=== PATIENT | male | born 1990 | race Caucasian/White ===

== ENCOUNTER 2018-09-26 19:12 | Inpatient (IN) ==
[2018-09-26] MEDS ORDERED: 0.9 % Sodium Chloride 1,000 ML IVC ONE (19:55)
[2018-09-26] MEDS ORDERED: *HR* LORazepam 2 MG/ML VIAL IVP ONE (19:56)
[2018-09-26 20:11] LABS: Basophils # 0.1 K/mcL (0.0-0.2); Basophils % 0.8 %; Eosinophils # 0.3 K/mcL (0.0-0.6); Eosinophils % 3.8 %; Hematocrit 41.5 % (37.5-50.1); Hemoglobin 14.4 g/dL (12.9-16.9); Immature Granulocytes % 0.3 % (0-4); Lymphocytes # 2.8 K/mcL (0.6-4.6); Lymphocytes % 35.6 %; Mean Corpuscular HGB Conc 34.7 g/dL (31.6-35.5); Mean Corpuscular Hemoglobin 30.3 pg (28.0-33.3); Mean Corpuscular Volume 87.2 fL (83.0-100.0); Mean Platelet Volume 11.5 fL (9.4-12.4); Monocytes % 12.5 %; Neutrophils # 3.7 K/mcL (1.6-8.9); Platelet Count 183 K/mcL (140-400); Red Blood Count 4.76 M/mcL (4.19-5.50); Red Cell Distribution Width 13.3 % (11.5-14.5)
--- NOTE | 2018-09-26 20:12 | Emergency Department Note ---
Disposition Clinical Impression: Auditory hallucination Disposition: Admitted As Inpatient Condition: Fair Referrals: NONE,PCP [Primary Care Provider] - Forms: ED Satisfaction Letter Time of Disposition: 22:49 General Adult HPI - General Chief complaint: ED Syncope Stated complaint: Dizzy Near Syncope Pain/ Numbness All Over Time Seen by Provider: 09/26/18 19:14 Source: patient Mode of arrival: ambulatory Limitations: no limitations Nursing Notes Reviewed: Yes Vital Signs Reviewed: Yes - History of Present Illness HPI Narrative: Patient is a 28-year-old male with past medical history of substance abuse [facility] presents to the emergency department for evaluation of pain and states that he feels like he is dying. States his pain is less so physical more so emotional. States also hearing auditory hallucinations of voices in his head but he cannot make out what they are saying. He denies wanting to harm himself or harm others. He also states that he does not have anywhere to stay at this time. He was just seen in the emergency room yesterday for similar symptoms and is also displaying signs and symptoms of substance abuse at that time tachycardia and agitation. He denies drug use today although yesterday he did have a positive urine drug screen for amphetamines and marijuana. He does complain of pain in his right foot which was evaluated yesterday with an x-ray and showed chronic changes. Pain Scale: 0 - Related Data Previous Rx's Medication Instructions Recorded Orphenadrine [Norflex] 100 mg PO Q12HR #10 tablet.er 12/14/16 HYDROcodone/Acet 5/325 mg [[place] 1 tab PO Q6H PRN #10 tab 02/13/17 5-325 mg] Naproxen [Naprosyn] 500 mg PO BID PRN #15 tablet 02/13/17 Allergies Allergy/AdvReac Type Severity Reaction Status Date / Time Cefaclor [From [facility]] AdvReac Hives Verified 09/25/18 23:15 All systems ED: reviewed and negative except as stated. Review of Systems: As Per HPI Constitutional: Denies: fever, chills Cardiovascular: Denies: chest pain, palpitations Respiratory: Denies: cough, dyspnea, wheezes Gastrointestinal: Denies: abdominal pain, nausea, vomiting Genitourinary: Denies: urgency, dysuria, frequency Musculoskeletal: Denies: back pain, neck pain Integumentary: Denies: rash, abrasion, lesions Neurological: Denies: headache, weakness, numbness, paresthesias, confusion, abnormal gait Psychiatric: Reports: anxiety, depression, auditory hallucinations. Denies: suicidal thoughts, homicidal thoughts, visual hallucinations Past Medical History - Past Medical History Attestation: Yes The following information was validated with the patient. Medical history: Reports: hypertension Surgical history: Reports: non-contributory Psychiatric history: Reports: no psych history - Social History Smoking Status: Current every day smoker Smokeless Tobacco Status: No Alcohol use: Reports: none Drug use: Reports: none Physical Exam - General Limitations: no limitations General appearance: alert, anxious - Head Head exam: atraumatic, normocephalic, normal inspection - Eye Eye exam: Present: normal appearance, PERRL, EOMI - ENT ENT exam: normal exam, normal oropharynx, mucous membranes dry - Neck Neck exam: Present: normal inspection, full ROM, trachea midline - Chest Chest inspection: Present: normal inspection, symmetric chest wall rise - Respiratory Respiratory exam: Present: normal lung sounds bilaterally - Cardiovascular Cardiovascular exam: Present: normal rhythm, tachycardia, normal heart sounds, +S1, +S2 - Abdominal Exam Abdominal exam: Present: soft, Non-Tender. Absent: tenderness, distention, guarding, rebound, rigidity - Extremities Exam Extremities exam: Present: normal inspection, full ROM. Absent: tenderness, pedal edema - Back Exam Back exam: Present: normal inspection, full ROM. Absent: tenderness - Neurological Exam Neurological exam: Present: alert, oriented X3 - Psychiatric Psychiatric exam: Present: normal affect, normal mood - Skin Skin exam: Present: warm, dry, intact, normal color Course Course Narrative: Patient returns to the emergency department after being discharged earlier this morning and evaluated by both the psychiatric team as well as the [facility] nurse team. States that he is unable to deal with his voices that he is hearing in his head. He denies being homicidal or suicidal. Continues to deny drug use. Patient will undergo medical clearance for reevaluation by the psychiatric 1A team. He is tachycardic however yesterday his urine drug screen was positive for amphetamines. He also appears dry on exam. Receive a liter of fluids. - Reevaluation(s) Reevaluation #1: 1A team agrees to accept the patient. Time: 22:52 Vital Signs Temperature 99.7 F H 01/31/19 19:28 Pulse Rate 133 09/26/18 19:28 Respiratory Rate 16 09/26/18 19:28 Blood Pressure 173/93 09/26/18 19:28 O2 Sat by Pulse Oximetry 97 09/26/18 19:28 Temperature 99.7 F H 09/26/18 19:28 Pulse Rate 133 09/26/18 19:28 Respiratory Rate 16 09/26/18 19:28 Blood Pressure 173/93 09/26/18 19:28 O2 Sat by Pulse Oximetry 97 09/26/18 19:28 Oxygen Delivery Oxygen Delivery Room Air Medical Decision Making - Medical Records Medical records reviewed: Yes I reviewed the patient's medical records. - Lab Data Lab results reviewed: Yes I reviewed the patient's lab results. Result diagrams: 09/26/18 20:03 09/26/18 20:03 Lab Results 09/26/18 09/26/18 09/26/18 Range/Units 20:03 20:03 20:10 WBC 7.9 (4.3-11.1) K/mcL RBC 4.76 (4.19-5.50) M/mcL Hgb 14.4 (12.9-16.9) g/dL Hct 41.5 (37.5-50.1) % MCV 87.2 (83.0-100.0) fL MCH 30.3 (28.0-33.3) pg MCHC 34.7 (31.6-35.5) g/dL RDW 13.3 (11.5-14.5) % Plt Count 183 (140-400) K/mcL MPV 11.5 (9.4-12.4) fL Immature Gran % 0.3 (0-4) % Seg Neutrophils % 47.0 % Lymphocytes % 35.6 % Monocytes % 12.5 % Eosinophils % 3.8 % Basophils % 0.8 % Neutrophils # 3.7 (1.6-8.9) K/mcL Lymphocytes # 2.8 (0.6-4.6) K/mcL Monocytes # 1.0 (0.0-1.3) K/mcL Eosinophils # 0.3 (0.0-0.6) K/mcL Basophils # 0.1 (0.0-0.2) K/mcL Sodium 139 (136-145) mEq/L Potassium 3.0 L (3.5-5.1) mEq/L Chloride 103 (98-107) mEq/L Carbon Dioxide 27 (23-29) mEq/L BUN 6 (6-20) mg/dL Creatinine 0.67 L (0.70-1.30) mg/dL Est GFR ( Amer) > 60 (> 60) Est GFR (Non-Af Amer) > 60 (> 60) BUN/Creatinine Ratio 9 (6-26) Glucose 102 (70-105) mg/dL Calculated Osmolality 286 (280-300) Calcium 8.9 (8.6-10.3) mg/dL Urine Color Dark Yellow (Yellow) Urine Clarity Clear (Clear) Urine pH 6.0 (5.0-8.0) pH Units Ur Specific [place] 1.017 (1.010-1.025) Urine Protein Trace (Neg-Trace) mg/dL Urine Glucose (UA) Normal (Normal) mg/dL Urine Ketones 15 H (Negative) mg/dL Urine Blood Negative (Negative) Urine Nitrite Negative (Negative) Urine Bilirubin Small H (Negative) Urine Urobilinogen 2.0 H (Normal) mg/dL Ur Leukocyte Esterase Small H (Negative) Urine Microscopic RBC 0-3 (0-3) per hpf Urine Microscopic WBC 15-30 H (0-3) per hpf Ur Squamous Epith Cells Many H (None-Few) per lpf Urine Bacteria None Seen (None-Few) per hpf Hyaline Casts Few (None-Few) per lpf Salicylates < 2.5 L (15.0-30.0) mg/dL Urine Opiates Screen (Ydbtyh=098) ng/mL Acetaminophen < 10 L (10-20) mcg/mL Ur Barbiturates Screen (Goojge=857) ng/mL Ur Phencyclidine Scrn (Cutoff=25) ng/mL Ur Amphetamines Screen (Wrghoo=6839) ng/mL U Benzodiazepines Scrn (Ueiccz=544) ng/mL Urine Cocaine Screen (Cutoff= 300) ng/mL U Marijuana (THC) Screen (Cutoff = 50) ng/mL Ur Drug Screen Interp Ethyl Alcohol < 10 (Less than 10) mg/dL 09/26/18 Range/Units 20:13 WBC (4.3-11.1) K/mcL RBC (4.19-5.50) M/mcL Hgb (12.9-16.9) g/dL Hct (37.5-50.1) % MCV (83.0-100.0) fL MCH (28.0-33.3) pg MCHC (31.6-35.5) g/dL RDW (11.5-14.5) % Plt Count (140-400) K/mcL MPV (9.4-12.4) fL Immature Gran % (0-4) % Seg Neutrophils % % Lymphocytes % % Monocytes % % Eosinophils % % Basophils % % Neutrophils # (1.6-8.9) K/mcL Lymphocytes # (0.6-4.6) K/mcL Monocytes # (0.0-1.3) K/mcL Eosinophils # (0.0-0.6) K/mcL Basophils # (0.0-0.2) K/mcL Sodium (136-145) mEq/L Potassium (3.5-5.1) mEq/L Chloride (98-107) mEq/L Carbon Dioxide (23-29) mEq/L BUN (6-20) mg/dL Creatinine (0.70-1.30) mg/dL Est GFR ( Amer) (> 60) Est GFR (Non-Af Amer) (> 60) BUN/Creatinine Ratio (6-26) Glucose (70-105) mg/dL Calculated Osmolality (280-300) Calcium (8.6-10.3) mg/dL Urine Color (Yellow) Urine Clarity (Clear) Urine pH (5.0-8.0) pH Units Ur Specific [place] (1.010-1.025) Urine Protein (Neg-Trace) mg/dL Urine Glucose (UA) (Normal) mg/dL Urine Ketones (Negative) mg/dL Urine Blood (Negative) Urine Nitrite (Negative) Urine Bilirubin (Negative) Urine Urobilinogen (Normal) mg/dL Ur Leukocyte Esterase (Negative) Urine Microscopic RBC (0-3) per hpf Urine Microscopic WBC (0-3) per hpf Ur Squamous Epith Cells (None-Few) per lpf Urine Bacteria (None-Few) per hpf Hyaline Casts (None-Few) per lpf Salicylates (15.0-30.0) mg/dL Urine Opiates Screen Negative (Dmuwmp=852) ng/mL Acetaminophen (10-20) mcg/mL Ur Barbiturates Screen Negative (Rehudv=793) ng/mL Ur Phencyclidine Scrn Negative (Cutoff=25) ng/mL Ur Amphetamines Screen Positive H (Koduzt=0844) ng/mL U Benzodiazepines Scrn Negative (Nznvnb=611) ng/mL Urine Cocaine Screen Negative (Cutoff= 300) ng/mL U Marijuana (THC) Screen Positive H (Cutoff = 50) ng/mL Ur Drug Screen Interp See Below Ethyl Alcohol (Less than 10) mg/dL - EKG Data EKG #1 EKG attestation: Yes I reviewed and interpreted this EKG. EKG results narrative: EKG done at 19:40 shows sinus rhythm at a rate of 121 bpm. Normal axis. Intervals within normal limits. No signs of ischemia.
[2018-09-26 20:22] LABS: Bilirubin,Urine Small (Negative); Blood,Urine Negative (Negative); Clarity,Urine Clear (Clear); Color,Urine Dark Yellow (Yellow); Glucose,Urine (UA) Normal (Normal); Ketones,Urine 15 mg/dL (Negative); Leukocyte Esterase,Urine Small (Negative); Nitrite,Urine Negative (Negative); Protein,Urine Trace mg/dL (Neg-Trace); Specific Gravity,Urine 1.017 (1.010-1.025)
[2018-09-26 20:24] LABS: Bacteria,Urine None Seen per hpf (None-Few); Hyaline Casts,Urine Few per lpf (None-Few); RBC,Urine 0-3 per hpf (0-3); Squamous Epithelial Cell,Urine Many per lpf (None-Few); WBC,Urine 15-30 per hpf (0-3)
[2018-09-26 20:29] LABS: Amphetamine Screen,Urine Positive ng/mL (Cutoff=1000); Barbiturate Screen,Urine Negative ng/mL (Cutoff=200); Benzodiazepines Screen,Urine Negative ng/mL (Cutoff=200); Cannabinoid Screen,Urine Positive ng/mL (Cutoff = 50); Cocaine Screen,Urine Negative ng/mL (Cutoff= 300); Opiate Screen,Urine Negative ng/mL (Cutoff=300); Phencyclidine Screen,Urine Negative ng/mL (Cutoff=25)
[2018-09-26 20:31] LABS: Acetaminophen < 10 mcg/mL (10-20); BUN/Creatinine Ratio 9 (6-26); Blood Urea Nitrogen 6 mg/dL (6-20); Calcium 8.9 mg/dL (8.6-10.3); Carbon Dioxide 27 mEq/L (23-29); Chloride 103 mEq/L (98-107); Ethanol < 10 mg/dL (Less than 10); Glucose 102 mg/dL (70-105); Osmolality,Calculated 286 (280-300); Salicylate < 2.5 mg/dL (15.0-30.0); Sodium 139 mEq/L (136-145); eGFR For Non-African Americans > 60 (> 60)
[2018-09-26] MEDS ORDERED: *HR* LORazepam 1 MG TABLET PO PRN (22:53)
[2018-09-26] MEDS ORDERED: Haloperidol Lactate 5 MG/ML VIAL IM PRN (22:53)
[2018-09-26] MEDS ORDERED: MOM Conc 10 ML UD.LIQ PO PRN (22:53)
[2018-09-26] MEDS ORDERED: *HR* LORazepam 2 MG/ML VIAL IM PRN (22:53)
[2018-09-26] MEDS ORDERED: Mag Hydrox/Al Hydrox/Simeth 30 ML UDC PO PRN (22:53)
--- NOTE | 2018-09-26 23:24 | Emergency Department Note ---
Disposition Clinical Impression: Auditory hallucination Disposition: Admitted As Inpatient Condition: Fair General Adult HPI - General Chief complaint: ED Syncope Stated complaint: Dizzy Near Syncope Pain/ Numbness All Over Time Seen by Provider: 09/26/18 19:14 Source: patient Mode of arrival: ambulatory Limitations: no limitations Nursing Notes Reviewed: Yes Vital Signs Reviewed: Yes - History of Present Illness Pain Scale: 0 - Related Data Previous Rx's Medication Instructions Recorded Orphenadrine [Norflex] 100 mg PO Q12HR #10 tablet.er 12/14/16 HYDROcodone/Acet 5/325 mg [[place] 1 tab PO Q6H PRN #10 tab 02/13/17 5-325 mg] Naproxen [Naprosyn] 500 mg PO BID PRN #15 tablet 02/13/17 Allergies Allergy/AdvReac Type Severity Reaction Status Date / Time Cefaclor [From Ceclor] AdvReac Hives Verified 09/25/18 23:15 Constitutional: Denies: fever, chills Cardiovascular: Denies: chest pain, palpitations Respiratory: Denies: cough, dyspnea, wheezes Gastrointestinal: Denies: abdominal pain, nausea, vomiting Genitourinary: Denies: urgency, dysuria, frequency Musculoskeletal: Denies: back pain, neck pain Integumentary: Denies: rash, abrasion, lesions Neurological: Denies: headache, weakness, numbness, paresthesias, confusion, abnormal gait Psychiatric: Reports: anxiety, depression, auditory hallucinations. Denies: suicidal thoughts, homicidal thoughts, visual hallucinations Past Medical History - Past Medical History Medical history: Reports: hypertension Surgical history: Reports: non-contributory Psychiatric history: Reports: no psych history - Social History Smoking Status: Current every day smoker Smokeless Tobacco Status: No Alcohol use: Reports: none Drug use: Reports: none Physical Exam - General Limitations: no limitations General appearance: alert, anxious Course Vital Signs Temperature 99.7 F H 09/26/18 19:28 Pulse Rate 133 09/26/18 19:28 Respiratory Rate 16 09/26/18 19:28 Blood Pressure 173/93 09/26/18 19:28 O2 Sat by Pulse Oximetry 97 09/26/18 19:28 Temperature 99.7 F H 09/26/18 19:28 Pulse Rate 133 09/26/18 19:28 Respiratory Rate 16 01/31/19 19:28 Blood Pressure 173/93 09/26/18 19:28 O2 Sat by Pulse Oximetry 97 09/26/18 19:28 Oxygen Delivery Oxygen Delivery Room Air Medical Decision Making - Medical Records Medical records reviewed: Yes I reviewed the patient's medical records. - Lab Data Lab results reviewed: Yes I reviewed the patient's lab results. Result diagrams: 09/26/18 20:03 09/26/18 20:03 Lab Results 09/26/18 09/26/18 09/26/18 Range/Units 20:03 20:03 20:10 WBC 7.9 (4.3-11.1) K/mcL RBC 4.76 (4.19-5.50) M/mcL Hgb 14.4 (12.9-16.9) g/dL Hct 41.5 (37.5-50.1) % MCV 87.2 (83.0-100.0) fL MCH 30.3 (28.0-33.3) pg MCHC 34.7 (31.6-35.5) g/dL RDW 13.3 (11.5-14.5) % Plt Count 183 (140-400) K/mcL MPV 11.5 (9.4-12.4) fL Immature Gran % 0.3 (0-4) % Seg Neutrophils % 47.0 % Lymphocytes % 35.6 % Monocytes % 12.5 % Eosinophils % 3.8 % Basophils % 0.8 % Neutrophils # 3.7 (1.6-8.9) K/mcL Lymphocytes # 2.8 (0.6-4.6) K/mcL Monocytes # 1.0 (0.0-1.3) K/mcL Eosinophils # 0.3 (0.0-0.6) K/mcL Basophils # 0.1 (0.0-0.2) K/mcL Sodium 139 (136-145) mEq/L Potassium 3.0 L (3.5-5.1) mEq/L Chloride 103 (98-107) mEq/L Carbon Dioxide 27 (23-29) mEq/L BUN 6 (6-20) mg/dL Creatinine 0.67 L (0.70-1.30) mg/dL Est GFR ( Amer) > 60 (> 60) Est GFR (Non-Af Amer) > 60 (> 60) BUN/Creatinine Ratio 9 (6-26) Glucose 102 (70-105) mg/dL Calculated Osmolality 286 (280-300) Calcium 8.9 (8.6-10.3) mg/dL Urine Color Dark Yellow (Yellow) Urine Clarity Clear (Clear) Urine pH 6.0 (5.0-8.0) pH Units Ur Specific [place] 1.017 (1.010-1.025) Urine Protein Trace (Neg-Trace) mg/dL Urine Glucose (UA) Normal (Normal) mg/dL Urine Ketones 15 H (Negative) mg/dL Urine Blood Negative (Negative) Urine Nitrite Negative (Negative) Urine Bilirubin Small H (Negative) Urine Urobilinogen 2.0 H (Normal) mg/dL Ur Leukocyte Esterase Small H (Negative) Urine Microscopic RBC 0-3 (0-3) per hpf Urine Microscopic WBC 15-30 H (0-3) per hpf Ur Squamous Epith Cells Many H (None-Few) per lpf Urine Bacteria None Seen (None-Few) per hpf Hyaline Casts Few (None-Few) per lpf Salicylates < 2.5 L (15.0-30.0) mg/dL Urine Opiates Screen (Soturv=413) ng/mL Acetaminophen < 10 L (10-20) mcg/mL Ur Barbiturates Screen (Wcadtw=356) ng/mL Ur Phencyclidine Scrn (Cutoff=25) ng/mL Ur Amphetamines Screen (Lpsfgf=7972) ng/mL U Benzodiazepines Scrn (Rmgkvz=918) ng/mL Urine Cocaine Screen (Cutoff= 300) ng/mL U Marijuana (THC) Screen (Cutoff = 50) ng/mL Ur Drug Screen Interp Ethyl Alcohol < 10 (Less than 10) mg/dL 09/26/18 Range/Units 20:13 WBC (4.3-11.1) K/mcL RBC (4.19-5.50) M/mcL Hgb (12.9-16.9) g/dL Hct (37.5-50.1) % MCV (83.0-100.0) fL MCH (28.0-33.3) pg MCHC (31.6-35.5) g/dL RDW (11.5-14.5) % Plt Count (140-400) K/mcL MPV (9.4-12.4) fL Immature Gran % (0-4) % Seg Neutrophils % % Lymphocytes % % Monocytes % % Eosinophils % % Basophils % % Neutrophils # (1.6-8.9) K/mcL Lymphocytes # (0.6-4.6) K/mcL Monocytes # (0.0-1.3) K/mcL Eosinophils # (0.0-0.6) K/mcL Basophils # (0.0-0.2) K/mcL Sodium (136-145) mEq/L Potassium (3.5-5.1) mEq/L Chloride (98-107) mEq/L Carbon Dioxide (23-29) mEq/L BUN (6-20) mg/dL Creatinine (0.70-1.30) mg/dL Est GFR ( Amer) (> 60) Est GFR (Non-Af Amer) (> 60) BUN/Creatinine Ratio (6-26) Glucose (70-105) mg/dL Calculated Osmolality (280-300) Calcium (8.6-10.3) mg/dL Urine Color (Yellow) Urine Clarity (Clear) Urine pH (5.0-8.0) pH Units Ur Specific [place] (1.010-1.025) Urine Protein (Neg-Trace) mg/dL Urine Glucose (UA) (Normal) mg/dL Urine Ketones (Negative) mg/dL Urine Blood (Negative) Urine Nitrite (Negative) Urine Bilirubin (Negative) Urine Urobilinogen (Normal) mg/dL Ur Leukocyte Esterase (Negative) Urine Microscopic RBC (0-3) per hpf Urine Microscopic WBC (0-3) per hpf Ur Squamous Epith Cells (None-Few) per lpf Urine Bacteria (None-Few) per hpf Hyaline Casts (None-Few) per lpf Salicylates (15.0-30.0) mg/dL Urine Opiates Screen Negative (Pitnun=699) ng/mL Acetaminophen (10-20) mcg/mL Ur Barbiturates Screen Negative (Nbckfi=898) ng/mL Ur Phencyclidine Scrn Negative (Cutoff=25) ng/mL Ur Amphetamines Screen Positive H (Encufm=1783) ng/mL U Benzodiazepines Scrn Negative (Nlxqzh=262) ng/mL Urine Cocaine Screen Negative (Cutoff= 300) ng/mL U Marijuana (THC) Screen Positive H (Cutoff = 50) ng/mL Ur Drug Screen Interp See Below Ethyl Alcohol (Less than 10) mg/dL - EKG Data EKG #1 EKG attestation: Yes I reviewed and interpreted this EKG. EKG results narrative: EKG shows a sinus tachycardia with ventricular rate of 121. No acute ST segment elevation or depression. Moderate artifact. No ectopy. Attestation Statement - Attestation Attestation: I, Go Cates MD, personally evaluated this patient and discussed their management with the resident physician. I reviewed the resident's note and agree with the documented findings, medical decision making, and plan of care. This patient was seen here in the emergency department less than 24 hours ago with similar complaints. Patient complains of having auditory hallucinations. He states he feels like he is dying inside. He denies any suicidal or homicidal ideation. Patient feels he needs to come into the hospital for his psychiatric issues. On examination patient is a well-developed well-nourished male in no acute distress. He is alert and oriented. No cyanosis or diaphoresis. Breath sounds clear and equal bilaterally. Heart regular with a mild tachycardia. Abdomen soft and nontender with normal bowel sounds. Labs reviewed. EKG shows sinus tachycardia with no acute ischemic changes or ectopy. Patient medically cleared for psychiatric evaluation. [address] psychiatry department was consulted and evaluated the patient in the emergency department and after evaluation patient is being admitted to the [address] psychiatric unit.
[2018-09-27] MEDS: Nicotine 21 MG PATCH.TD24 TD SCH (10:47)
[2018-09-27] MEDS: RALTEGRAVIR POTASSIUM 400 MG TABLET PO SCH ×2 (10:47→20:43)
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
[2018-09-27] MEDS: hydrOXYzine pamoate 25 MG CAPSULE PO PRN (20:27)
[2018-09-27] MEDS: risperiDONE 1 MG TABLET PO SCH (20:27)
[2018-09-27] MEDS: traZODone 50 MG TABLET PO PRN (20:29)
[2018-09-28] MEDS: Nicotine 21 MG PATCH.TD24 TD SCH (09:26)
--- NOTE | 2018-09-28 09:57 | Psychiatry Progress Note ---
Date of Encounter: 09/28/18 Time of Encounter: 09:54 Subjective Interval history: Client states he is still feeling very depressed and anxious. Denies suicidal thoughts today but reports mood is not good. Continues to have mumbled AH but states he thinks this symptom has gotten better. No trouble tolerating the medication so will plan to increase dose of Zoloft for tomorrow morning. Client states he was living with a friend prior to admission. Previous to his friend he was staying with his grandfather. Does not know if either of these places are housing options for him anymore but intends to call to try and find out. Review of Systems Constitutional: Denies: fever, chills, weakness, weight change Eyes: Denies: eye pain, vision change Ears, Nose, Throat: Denies: ear pain, throat pain, dental pain, hearing loss, congestion Cardiovascular: Denies: chest pain, palpitations, dyspnea on exertion Respiratory: Denies: cough, dyspnea, wheezes Gastrointestinal: Denies: abdominal pain, nausea, vomiting, diarrhea, constipation Musculoskeletal: Denies: joint swelling, joint pain Neurological: Denies: headache, weakness, numbness, memory loss Results - Vital Signs Vital Signs: Temp Pulse Resp BP Pulse Ox 98.6 F 85 16 142/88 98 09/27/18 19:52 09/27/18 19:52 09/27/18 19:52 09/27/18 19:52 09/27/18 19:52 Assessment and Plan (1) Major depression Current visit: Yes Status: Acute Plan: Continue hospitalization, Close observation, Suicide Precautions per unit protocol, Encourage participation in unit milieu, Group Therapy, Monitor sleep, Monitor appetite Risks, benefits, side effects, alternatives discussed w/pt: Yes Patient agreeable to treatment: Yes Qualifiers: Major depression recurrence: recurrent Active/Remission status: currently active Major depression episode severity: moderate Qualified Code(s): F33.1 - Major depressive disorder, recurrent, moderate (2) Acute stress disorder Current visit: Yes Status: Acute Plan: Continue hospitalization, Close observation, Suicide Precautions per unit protocol, Encourage participation in unit milieu, Group Therapy, Monitor sleep, Monitor appetite Risks, benefits, side effects, alternatives discussed w/pt: Yes Patient agreeable to treatment: Yes Consult Discharge Plan - Plan Referrals: NONE,PCP [Primary Care Provider] - Psychiatry Exam - Constitutional Vitals: Temp Pulse Resp BP Pulse Ox 98.6 F 85 16 142/88 98 09/27/18 19:52 09/27/18 19:52 09/27/18 19:52 09/27/18 19:52 09/27/18 19:52 General appearance: age & developmentally appropriate, well-groomed, well- nourished - Musculoskeletal Gait: normal Station: relaxed Strength & Tone: normal for patient - Psychiatric Patient Orientation: Yes Person, Yes Time, Yes Place Level of alertness: Alert Behavior: calm, cooperative Psychomotor activity: Normal Eye Contact: Maintains Eye Contact Mood Description: Depressed, Anxious Affect description: congruent with mood Speech Volume: Normal Speech pattern: normal rate, normal rhythm, normal tone, fluent, spontaneous Language & Vocabulary: consistent with education Thought Process: Linear Thought Content: No Suicidal ideation, No Homicidal ideation, No Overt delusions Perceptual Disturbances: Yes Auditory hallucinations Attention Span Ability: Capable of Focused Attention Memory Description: Grossly Intact Patient Reliability: Reliable Historian Fund of knowledge: Yes abstraction ability, Yes aware of current events Intelligence Estimate: Below Average Judgment: Fair Insight: Partial
--- NOTE | 2018-09-28 10:07 | Electrocardiograph Report ---
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
[2018-09-28] MEDS: RALTEGRAVIR POTASSIUM 400 MG TABLET PO SCH ×2 (10:14→20:07)
[2018-09-28] MEDS: hydrOXYzine pamoate 25 MG CAPSULE PO PRN (20:07)
[2018-09-28] MEDS: traZODone 50 MG TABLET PO PRN (20:07)
[2018-09-28] MEDS: risperiDONE 1 MG TABLET PO SCH (20:07)
[2018-09-29] MEDS: RALTEGRAVIR POTASSIUM 400 MG TABLET PO SCH ×2 (08:34→20:58)
[2018-09-29] MEDS: hydrOXYzine pamoate 25 MG CAPSULE PO PRN ×3 (08:37→20:59)
[2018-09-29] MEDS: Nicotine 21 MG PATCH.TD24 TD SCH (08:40)
--- NOTE | 2018-09-29 09:14 | Psychiatry Progress Note ---
Date of Encounter: 09/29/18 Time of Encounter: 09:12 Subjective Interval history: Client reports he is doing a little better. Continues to be depressed and anxious but denying SI. AH have also improved. Wallace the mumbling last night but not at all during the day. Denies nightmares or flashbacks. Overall seems to be coping relatively well. Spoke with grandfather and grandfather noncommittal about whether client can stay there at time of discharge. Plans to discuss other housing options with outreach and education social worker tomorrow. Likely discharge early this week. Review of Systems Constitutional: Denies: fever, chills, weakness, weight change Eyes: Denies: eye pain, vision change Ears, Nose, Throat: Denies: ear pain, throat pain, dental pain, hearing loss, congestion Cardiovascular: Denies: chest pain, palpitations, dyspnea on exertion Respiratory: Denies: cough, dyspnea, wheezes Gastrointestinal: Denies: abdominal pain, nausea, vomiting, diarrhea, constipation Musculoskeletal: Denies: joint swelling, joint pain Neurological: Denies: headache, weakness, numbness, memory loss Results - Vital Signs Vital Signs: Temp Pulse Resp BP Pulse Ox 99.0 F 77 18 147/84 98 09/28/18 20:00 09/28/18 20:00 09/28/18 20:00 09/28/18 20:00 09/28/18 20:00 Assessment and Plan (1) Major depression Current visit: Yes Status: Acute Plan: Continue hospitalization, Close observation, Suicide Precautions per unit protocol, Encourage participation in unit milieu, Group Therapy, Monitor sleep, Monitor appetite Risks, benefits, side effects, alternatives discussed w/pt: Yes Patient agreeable to treatment: Yes Qualifiers: Major depression recurrence: recurrent Active/Remission status: currently active Major depression episode severity: moderate Qualified Code(s): F33.1 - Major depressive disorder, recurrent, moderate (2) Acute stress disorder Current visit: Yes Status: Acute Plan: Continue hospitalization, Close observation, Suicide Precautions per unit protocol, Encourage participation in unit milieu, Group Therapy, Monitor sleep, Monitor appetite Risks, benefits, side effects, alternatives discussed w/pt: Yes Patient agreeable to treatment: Yes Consult Discharge Plan - Plan Referrals: NONE,PCP [Primary Care Provider] - Psychiatry Exam - Constitutional Vitals: Temp Pulse Resp BP Pulse Ox 99.0 F 77 18 147/84 98 09/28/18 20:00 09/28/18 20:00 09/28/18 20:00 09/28/18 20:00 09/28/18 20:00 General appearance: age & developmentally appropriate, well-groomed, well- nourished - Musculoskeletal Gait: normal Station: relaxed Strength & Tone: normal for patient - Psychiatric Patient Orientation: Yes Person, Yes Time, Yes Place Level of alertness: Alert Behavior: calm, cooperative Psychomotor activity: Normal Eye Contact: Maintains Eye Contact Mood Description: Depressed, Anxious Affect description: flat Speech Volume: Normal Speech pattern: normal rate, normal rhythm, normal tone, fluent, spontaneous Language & Vocabulary: consistent with education Thought Process: Linear Thought Content: No Suicidal ideation, No Homicidal ideation, No Overt delusions Perceptual Disturbances: Yes Auditory hallucinations Attention Span Ability: Capable of Focused Attention Memory Description: Grossly Intact Patient Reliability: Reliable Historian Fund of knowledge: Yes abstraction ability, Yes aware of current events Intelligence Estimate: Below Average Judgment: Fair Insight: Partial
[2018-09-29] MEDS: Ibuprofen 400 MG TABLET PO PRN (13:57)
[2018-09-29] MEDS: risperiDONE 1 MG TABLET PO SCH (20:58)
[2018-09-29] MEDS: traZODone 50 MG TABLET PO PRN (20:58)
[2018-09-30] MEDS: Nicotine 21 MG PATCH.TD24 TD SCH (08:25)
[2018-09-30] MEDS: RALTEGRAVIR POTASSIUM 400 MG TABLET PO SCH ×2 (08:26→20:41)
[2018-09-30] MEDS: hydrOXYzine pamoate 25 MG CAPSULE PO PRN ×3 (08:28→17:03)
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
[2018-09-30] MEDS: risperiDONE 1 MG TABLET PO SCH (20:42)
[2018-09-30] MEDS: traZODone 50 MG TABLET PO PRN (20:42)
[2018-09-30] MEDS: Ibuprofen 400 MG TABLET PO PRN (23:36)
[2018-10-01] MEDS: Nicotine 21 MG PATCH.TD24 TD SCH (08:42)
[2018-10-01] MEDS: RALTEGRAVIR POTASSIUM 400 MG TABLET PO SCH ×2 (08:43→20:57)
[2018-10-01] MEDS: hydrOXYzine pamoate 25 MG CAPSULE PO PRN ×4 (08:43→20:57)
--- NOTE | 2018-10-01 13:23 | Psychiatry Progress Note ---
Date of Encounter: 10/01/18 Time of Encounter: 11:00 Subjective Interval history: Patient is a 28 year old male who endorses his mood as "alright" this morning. He is in bed during interview. Patient rates his depression and anxiety as a 4/10, 0 being none and 10 being the worst. In regards to what is triggering his current anxiety and depression, patient replies "a combination of things." Patient denies active and passive suicidal and homicidal ideation. He denies visual hallucinations. Mr. Salazar is endorsing auditory hallucinations, but they are lessening in intensity. He states he last heard them this morning. When asked to elaborate, he replies "they were the same voices I've been hearing...just people mumbling." He denies command hallucinations and again reiterates that the voices are becoming "less intense". He states that his sleep was "not good" and continues on "I couldn't fall asleep." He denies side effects from the medications and endorses his appetite as "good". He denies physical pain. Review of Systems Neurological: Denies: headache, weakness, numbness, memory loss Psychiatric: Reports: depression, anxiety, abnormal sleep pattern, auditory hallucinations. Denies: suicidal ideation, homicidal ideation Results - Vital Signs Vital Signs: Temp Pulse Resp BP Pulse Ox 98.9 F 91 16 149/80 97 10/01/18 09:00 10/01/18 09:00 10/01/18 09:00 10/01/18 09:00 10/01/18 09:00 Assessment and Plan (1) Major depression with psychotic features Current visit: Yes Status: Acute Plan: Continue hospitalization, Close observation, Suicide Precautions per unit protocol, Encourage participation in unit milieu, Group Therapy, Monitor sleep, Monitor appetite Additional Plan: Continue oral risperidone 2 mg at night for psychosis. Auditory hallucinations seems to be improving with current treatment. Continue sertraline 100 mg daily for mood. Made sure patient is aware that he has trazodone 50 mg at night prn for sleep. Risks, benefits, side effects, alternatives discussed w/pt: Yes Patient agreeable to treatment: Yes Consult Discharge Plan - Plan Referrals: NONE,PCP [Primary Care Provider] - Psychiatry Exam - Constitutional Vitals: Temp Pulse Resp BP Pulse Ox 98.9 F 91 16 149/80 97 10/01/18 09:00 10/01/18 09:00 10/01/18 09:00 10/01/18 09:00 10/01/18 09:00 General appearance: age & developmentally appropriate, disheveled, thin - Psychiatric Patient Orientation: Yes Person, Yes Time, Yes Place Level of alertness: Alert Behavior: calm, cooperative Psychomotor activity: Normal Eye Contact: Maintains Eye Contact Mood Description: Euthymic/stable Patient description of mood: "alright" Affect description: congruent with mood Speech Volume: Normal Speech pattern: normal rate, normal rhythm, normal tone, fluent, spontaneous Language & Vocabulary: consistent with education Thought Process: Linear, Goal Oriented Thought Content: No Suicidal ideation, No Homicidal ideation, No Overt delusions Perceptual Disturbances: No Reacting to internal stimuli, Yes Auditory hallucinations, No Visual hallucinations Attention Span Ability: Capable of Focused Attention Memory Description: Grossly Intact Patient Reliability: Reliable Historian Fund of knowledge: Yes abstraction ability, Yes aware of current events Intelligence Estimate: Average Judgment: Limited Insight: Partial
[2018-10-01] MEDS: Ibuprofen 400 MG TABLET PO PRN ×2 (17:06→21:47)
[2018-10-01] MEDS ORDERED: traZODone 50 MG TABLET PO PRN (17:29)
--- NOTE | 2018-10-01 18:11 | Event Note ---
Date of Encounter: 10/01/18 Time of Encounter: 10:00 I examined this patient and my medical decision-making was reviewed with the Resident Physician. I agree with the documented findings, disposition and treatment plan as described except to the extent set forth below.
[2018-10-01] MEDS: risperiDONE 1 MG TABLET PO SCH (20:57)
[2018-10-02] MEDS: RALTEGRAVIR POTASSIUM 400 MG TABLET PO SCH (08:32)
[2018-10-02] MEDS: Nicotine 21 MG PATCH.TD24 TD SCH (08:32)
[2018-10-02] MEDS: hydrOXYzine pamoate 25 MG CAPSULE PO PRN (08:34)
[2018-10-02 08:50] VITALS: BP 141/89
--- NOTE | 2018-10-02 10:20 | Discharge Summary ---
Date of Encounter: 10/02/18 Time of Encounter: 10:17 Diagnosis - Discharge Diagnosis (1) Major depression Status: Acute Comments: Patient is alert and oriented [address] time and situation, muscle tone grossly intact, speech normal limits for rhythm, rate, content and volume. Muscle tone is normal for patient. Grooming and hygiene are appropriate and eye contact is maintained appropriately. The patient appears age appropriate. Behavior is cooperative. Thought content is negative for suicidal or homicidal thoughts ideations or plans. There are no hallucinations or delusions. Mood is good and affect is reactive, consistent and congruent. Thought process is linear, logical, goal oriented and coherent thought. Memory is intact to recent and remote as the patient is able to recall several items after a delay and can consistently recall childhood information. Language and vocabulary are consistent with education and intelligence is estimated to be average based on education and general fund of information. Concentration and attention are sustained and appropriate. Insight and judgment are intact as the patient agrees with his diagnosis and the need for ongoing mental health treatment. Qualifiers: Major depression recurrence: recurrent Active/Remission status: currently active Major depression episode severity: moderate Qualified Code(s): F33.1 - Major depressive disorder, recurrent, moderate Medications - Discharge Medications Prescriptions: hydrOXYzine pamoate [HydrOXYzine Pamoate] 25 mg PO TID PRN #60 capsule PRN Reason: Anxiety risperiDONE [RisperDAL] 2 mg PO HS #60 tablet Sertraline [Zoloft] 100 mg PO DAILY #30 tablet traZODone [TraZODone] 100 mg PO HS PRN #60 tablet PRN Reason: Insomnia Emtricitabine/Tenofovir [Truvada] 1 each PO DAILY tablet 10/02/18 [Rx] Raltegravir Potassium [Isentress] 400 mg PO BID tablet 10/02/18 [Rx] Sertraline [Zoloft] 100 mg PO DAILY #30 tablet 10/02/18 [Rx] hydrOXYzine pamoate [HydrOXYzine Pamoate] 25 mg PO TID PRN #60 capsule 10/02/18 [Rx] risperiDONE [RisperDAL] 2 mg PO HS #60 tablet 10/02/18 [Rx] traZODone [TraZODone] 100 mg PO HS PRN #60 tablet 10/02/18 [Rx] Allergy/AdvReac Type Severity Reaction Status Date / Time Cefaclor [From Ceclor] AdvReac Hives Verified 09/25/18 23:15 Results Procedures and tests throughout hospitalization: Completed Lab Orders Category Date Time Status Acetaminophen Stat Lab 09/26/18 20:03 Completed Basic Metabolic Panel Stat Lab 09/26/18 20:03 Completed Complete Blood Count [HEME] Stat Lab 09/26/18 20:03 Completed Drug Screen, Urine [UCHEM] Stat Lab 09/26/18 20:13 Completed Ethanol Stat Lab 09/26/18 20:03 Completed Salicylate Stat Lab 09/26/18 20:03 Completed Urinalysis reflex Microscopic [URIN] Stat Lab 09/26/18 20:10 Completed Lab Results 09/26/18 09/26/18 09/26/18 Range/Units 20:03 20:03 20:10 WBC 7.9 (4.3-11.1) K/mcL RBC 4.76 (4.19-5.50) M/mcL Hgb 14.4 (12.9-16.9) g/dL Hct 41.5 (37.5-50.1) % MCV 87.2 (83.0-100.0) fL MCH 30.3 (28.0-33.3) pg MCHC 34.7 (31.6-35.5) g/dL RDW 13.3 (11.5-14.5) % Plt Count 183 (140-400) K/mcL MPV 11.5 (9.4-12.4) fL Immature Gran % 0.3 (0-4) % Seg Neutrophils % 47.0 % Lymphocytes % 35.6 % Monocytes % 12.5 % Eosinophils % 3.8 % Basophils % 0.8 % Neutrophils # 3.7 (1.6-8.9) K/mcL Lymphocytes # 2.8 (0.6-4.6) K/mcL Monocytes # 1.0 (0.0-1.3) K/mcL Eosinophils # 0.3 (0.0-0.6) K/mcL Basophils # 0.1 (0.0-0.2) K/mcL Sodium 139 (136-145) mEq/L Potassium 3.0 L (3.5-5.1) mEq/L Chloride 103 (98-107) mEq/L Carbon Dioxide 27 (23-29) mEq/L BUN 6 (6-20) mg/dL Creatinine 0.67 L (0.70-1.30) mg/dL Est GFR ( Amer) > 60 (> 60) Est GFR (Non-Af Amer) > 60 (> 60) BUN/Creatinine Ratio 9 (6-26) Glucose 102 (70-105) mg/dL Calculated Osmolality 286 (280-300) Calcium 8.9 (8.6-10.3) mg/dL Urine Color Dark Yellow (Yellow) Urine Clarity Clear (Clear) Urine pH 6.0 (5.0-8.0) pH Units Ur Specific [place] 1.017 (1.010-1.025) Urine Protein Trace (Neg-Trace) mg/dL Urine Glucose (UA) Normal (Normal) mg/dL Urine Ketones 15 H (Negative) mg/dL Urine Blood Negative (Negative) Urine Nitrite Negative (Negative) Urine Bilirubin Small H (Negative) Urine Urobilinogen 2.0 H (Normal) mg/dL Ur Leukocyte Esterase Small H (Negative) Urine Microscopic RBC 0-3 (0-3) per hpf Urine Microscopic WBC 15-30 H (0-3) per hpf Ur Squamous Epith Cells Many H (None-Few) per lpf Urine Bacteria None Seen (None-Few) per hpf Hyaline Casts Few (None-Few) per lpf Salicylates < 2.5 L (15.0-30.0) mg/dL Urine Opiates Screen (Mgdqau=815) ng/mL Acetaminophen < 10 L (10-20) mcg/mL Ur Barbiturates Screen (Mmkuzz=485) ng/mL Ur Phencyclidine Scrn (Cutoff=25) ng/mL Ur Amphetamines Screen (Gtvkdr=7342) ng/mL U Benzodiazepines Scrn (Vmgjld=692) ng/mL Urine Cocaine Screen (Cutoff= 300) ng/mL U Marijuana (THC) Screen (Cutoff = 50) ng/mL Ur Drug Screen Interp Ethyl Alcohol < 10 (Less than 10) mg/dL 09/26/18 Range/Units 20:13 WBC (4.3-11.1) K/mcL RBC (4.19-5.50) M/mcL Hgb (12.9-16.9) g/dL Hct (37.5-50.1) % MCV (83.0-100.0) fL MCH (28.0-33.3) pg MCHC (31.6-35.5) g/dL RDW (11.5-14.5) % Plt Count (140-400) K/mcL MPV (9.4-12.4) fL Immature Gran % (0-4) % Seg Neutrophils % % Lymphocytes % % Monocytes % % Eosinophils % % Basophils % % Neutrophils # (1.6-8.9) K/mcL Lymphocytes # (0.6-4.6) K/mcL Monocytes # (0.0-1.3) K/mcL Eosinophils # (0.0-0.6) K/mcL Basophils # (0.0-0.2) K/mcL Sodium (136-145) mEq/L Potassium (3.5-5.1) mEq/L Chloride (98-107) mEq/L Carbon Dioxide (23-29) mEq/L BUN (6-20) mg/dL Creatinine (0.70-1.30) mg/dL Est GFR ( Amer) (> 60) Est GFR (Non-Af Amer) (> 60) BUN/Creatinine Ratio (6-26) Glucose (70-105) mg/dL Calculated Osmolality (280-300) Calcium (8.6-10.3) mg/dL Urine Color (Yellow) Urine Clarity (Clear) Urine pH (5.0-8.0) pH Units Ur Specific [place] (1.010-1.025) Urine Protein (Neg-Trace) mg/dL Urine Glucose (UA) (Normal) mg/dL Urine Ketones (Negative) mg/dL Urine Blood (Negative) Urine Nitrite (Negative) Urine Bilirubin (Negative) Urine Urobilinogen (Normal) mg/dL Ur Leukocyte Esterase (Negative) Urine Microscopic RBC (0-3) per hpf Urine Microscopic WBC (0-3) per hpf Ur Squamous Epith Cells (None-Few) per lpf Urine Bacteria (None-Few) per hpf Hyaline Casts (None-Few) per lpf Salicylates (15.0-30.0) mg/dL Urine Opiates Screen Negative (Twxohd=451) ng/mL Acetaminophen (10-20) mcg/mL Ur Barbiturates Screen Negative (Fkitcy=086) ng/mL Ur Phencyclidine Scrn Negative (Cutoff=25) ng/mL Ur Amphetamines Screen Positive H (Iippzh=5840) ng/mL U Benzodiazepines Scrn Negative (Wyfzhc=257) ng/mL Urine Cocaine Screen Negative (Cutoff= 300) ng/mL U Marijuana (THC) Screen Positive H (Cutoff = 50) ng/mL Ur Drug Screen Interp See Below Ethyl Alcohol (Less than 10) mg/dL Provider Date of admission: 09/26/18 22:59 Primary care physician: PCP NONE Discharging clinician: Ольга Fry Psychiatry Exam - Constitutional Vitals: Temp Pulse Resp BP Pulse Ox 98.1 F 78 16 141/89 95 10/02/18 08:49 10/02/18 08:49 10/02/18 08:49 10/02/18 08:49 10/02/18 08:49 General appearance: age & developmentally appropriate, well-groomed, well- nourished - Musculoskeletal Gait: normal Station: relaxed Strength & Tone: normal for patient - Psychiatric Patient Orientation: Yes Person, Yes Time, Yes Place Level of alertness: Alert Behavior: calm, cooperative Psychomotor activity: Normal Eye Contact: Maintains Eye Contact Mood Description: Euthymic/stable Affect description: congruent with mood, full range Speech Volume: Normal Speech pattern: normal rate, normal rhythm, normal tone, fluent, spontaneous Language & Vocabulary: consistent with education Thought Process: Linear, Goal Oriented Thought Content: No Suicidal ideation, No Homicidal ideation, No Overt delusions Perceptual Disturbances: No Auditory hallucinations, No Visual hallucinations Attention Span Ability: Capable of Focused Attention Memory Description: Grossly Intact Patient Reliability: Reliable Historian Fund of knowledge: Yes abstraction ability, Yes aware of current events Intelligence Estimate: Average Judgment: Limited Insight: Partial Hospital Course Hospital course: Patient was educated of his diagnosis and the risk-benefit side effects of this alternative treatment options and was monitored for responsiveness and side effects. Mood anxiety sleep and appetite interest improved as did future orientation. Self-harm thoughts subsided, thinking cleared, psychosis resolved, and mood stabilized. Patient was able to attend both individual and group therapy sessions as well as meeting with the psychiatrist daily and urged to discuss any medication or treatment issues or other concerns. The patient was educated primarily by verbal means about their diagnosis and manifestations in their life. The option for treatment including group and individual therapy programming was offered to the patient in the use of medications with all their potential risks, benefits, and side effects were discussed with the patient at length. The patient was given the opportunity to ask questions and was noted to participate in the treatment in the planning process. The patient felt ready and eager to be discharged from the inpatient psychiatric unit to continue on with treatment as an outpatient. The patient agreed that is they were safe for this disposition. The patient was considered to be able to participate in informed consent and decision making with respect to medical, legal, and financial issues of the time of discharge. At the time of discharge the patient adamantly denied any concerns for lethality including suicidal or homicidal thoughts ideations or plans and was future oriented toward ongoing mental health care, medical follow-up and sobriety. Time spent discussing smoking cessation with patient: 3 to 10 minutes Does patient wish to continue nicotine replacement upon disc: No - Time Spent with Patient Total time spent providing and/or coordinating discharge services: Less than 30 minutes Specific discharge activities: Interval history reviewed. Available labs reviewed . Psychotherapy provided. Patient had an opportunity to ask questions and address concerns. Patient was in agreement with the treatment plan. The risks benefits and side effects of medications were discussed with the patient, including alternatives and treatment. The patient was educated on the abstaining from any alcohol or illicit substances, following up with all scheduled appointments, and taking all medications as prescribed. The patient was educated on 90 meetings in 90 days and to find a sponsor. Assessment and Plan - Patient/Caregiver Discharge Instructions Activity: resume usual activities as tolerated Diet: regular diet Additional Instructions: Continue current medications. Follow up with outpatient mental health. Encourage continued therapy in a group or individual setting. The patient was discharged to home. - Follow up Plan Follow up with: NONE,PCP [Primary Care Provider] - Functional capacity at discharge: independent ambulation Overall status at discharge: Stable Disposition: Home, Self-Care Quality - Multiple Antipsychotics Patient discharged on 2 or more antipsychotic medications: No Procedures - Procedures Procedures: Crisis Stabilization, Supportive Therapy, Group Therapy, Psychoeducational Therapy
[2018-10-02] MEDS: Ibuprofen 400 MG TABLET PO PRN (10:33)
== END 2018-10-02 12:15 | disposition home or self-care (01) | DRG 751 ==
LOC: 1ANU 19:12 → EMEROOARM 19:12 → SUATTDRO 22:59 → 1ANU 23:14
PROVIDERS: ADMIT Psychiatry & Neurology Psychiatry; ATTEND Psychiatry & Neurology Psychiatry